=== PATIENT | female | born 1985 | race Caucasian/White ===

== ENCOUNTER 2016-06-03 09:55 | Emergency (ER) | payer OTHER ==
[~2016-06-03] VITALS: Ht 162.6 cm; Wt 113.0 kg
[~2016-06-03 09:55] MED LIST: DEPAKOTE ER500 MG PO; SEROQUEL100 MG PO; TRAZODONE HCL50 MG PO
[2016-06-03 10:40] LABS: EOSINOPHIL (%) 0.2 % (0-5); HEMATOCRIT 43.3 % (36.0-46.0); IMMATURE GRANULOCYTE (%) 0.2 % (0.0-0.7); LYMPHOCYTE COUNT 1.6 K/uL (1.0-2.8); MEAN PLAT.VOLUME 11.5 uM^3 (9.5-12.4); MONOCYTE (%) 6.2 % (3-12); MONOCYTE COUNT 0.5 K/uL (0-0.8); NEUTROPHIL (%) 75.2 % (45-76); NEUTROPHIL COUNT 6.5 K/uL (1.8-6.4); PLATELET COUNT 172 K/uL (156-360); RBC DIS.WIDTH-CV 13.9 % (11.8-14.6); RBC DIS.WIDTH-SD 46.8 % (39-53); RED BLOOD COUNT 4.76 M/uL (3.80-5.20); WHITE BLOOD COUNT 8.7 K/uL (4.1-10.2)
[2016-06-03 10:44] LABS: CHLORIDE 106 mEq/L (99-109); POTASSIUM 3.8 mEq/L (3.7-5.4); SODIUM 140 mEq/L (136-147)
[2016-06-03 10:46] LABS: GLUCOSE 116 mg/dL (70-99)
[2016-06-03 10:47] LABS: ANION GAP 13 MEQ/L (2-14)
[2016-06-03 10:48] LABS: TOTAL BILIRUBIN 0.5 mg/dL (0.0-1.0)
[2016-06-03 10:49] LABS: SERUM ETHYL ALCOHOL < 10 mg/dL
[2016-06-03 10:50] LABS: ALKALINE PHOSPHATASE 67 IU/L (3-129); GFR ESTIMATE (CALCULATED) > 59 mL/min/
[2016-06-03 10:52] LABS: UREA NITROGEN (BUN) 16 mg/dL (9-23)
[2016-06-03 10:53] LABS: SALICYLATE < 5.0 MG/DL (15-30)
[2016-06-03 11:01] LABS: QUANTITATIVE HCG < 4.0 MIU/ML
[2016-06-03 12:17] VITALS: BP 127/101
== END 2016-06-03 12:18 | disposition home or self-care (01) ==
LOC: EME 09:55
PROVIDERS: Emergency Medicine
DX: F32.9 Major depressive disorder, single episode, unspecified (principal)
CPT/HCPCS: 80053; 81003; 84702; 85025; 90837; 99281; 99285; G0480